=== PATIENT | male | born 1965 | race African-American/Black ===

== ENCOUNTER 2024-03-18 10:03 | Day surgery (SDC) | payer OTHER ==
[2024-03-11 11:24] VITALS: BMI 29.5
[2024-03-18] MEDS ORDERED: MIDAZOLAM HCL 2 MG/2 ML SINGLE DOSE VIAL ONE (11:06)
[2024-03-18 11:41] VITALS: TEMP 97.7
[2024-03-18 12:10] VITALS: BP 114/71; PULSE 67; RESP 18
== END 2024-03-18 12:15 | disposition home or self-care (01) ==
LOC: FASU-ENDO 10:03
PROVIDERS: ATTEND Internal Medicine Gastroenterology
PROC: 0DB68ZX Excision of Stomach, Via Natural or Artificial Opening Endoscopic, Diagnostic (ICD-10-PCS; 2024-03-18)
PROC: 0DB48ZX Excision of Esophagogastric Junction, Via Natural or Artificial Opening Endoscopic, Diagnostic (ICD-10-PCS; 2024-03-18)
PROC: 0DB98ZX Excision of Duodenum, Via Natural or Artificial Opening Endoscopic, Diagnostic (ICD-10-PCS; principal; 2024-03-18 11:18)
DX: K29.50 Unspecified chronic gastritis without bleeding (principal); K21.00 Gastro-esophageal reflux disease with esophagitis, without bleeding; K22.89 Other specified disease of esophagus
CPT/HCPCS: 88305-TC; 88342-TC